=== PATIENT | female | born 1985 ===

== ENCOUNTER 2018-04-19 20:16 | Emergency (ER) | payer SELFPAY ==
[2018-04-19 20:54] VITALS: TEMP 98.4
[2018-04-19] MEDS ORDERED: Sodium Chloride 0.9% 1,000 ML IV ONE (21:24)
--- NOTE | 2018-04-19 21:35 | C.PDOC ---
History Of Present Illness 32 year old female presents to the ED c/o brown watery diarrhea and vomiting. Patient reports she ate a shrimp meal yesterday. Patient is also c/o epigastric abdominal and headache, patient has been vomiting all day and not able to tolerate anything by mouth. Patient states no one else is sick at her home. Patient denies fever, chills, dysuria, heamaturia, back pain, recent travel, sick contacts. Time Seen by Provider: 04/19/18 21:16 Chief Complaint (Nursing): Abdominal Pain History Per: Patient History/Exam Limitations: no limitations Onset/Duration Of Symptoms: Days Current Symptoms Are (Timing): Still Present Context: Food Location Of Pain/Discomfort: Epigastric Radiation Of Pain To:: None Quality Of Discomfort: "Pain" Associated Symptoms: Vomiting, Diarrhea, Loss Of Appetite Exacerbating Factors: Food Alleviating Factors: None Last Bowel Movement: Today Recent travel outside of the [place]: No Additional History Per: Patient Abnormal Vaginal Bleeding: No Past Medical History Reviewed: Historical Data, Nursing Documentation, Vital Signs Vital Signs: Last Vital Signs Temp 98.4 F 04/19/18 20:46 Pulse 83 04/19/18 20:46 Resp 18 04/19/18 20:46 BP 104/71 04/19/18 20:46 Pulse Ox 99 04/19/18 21:38 - Medical History PMH: No Chronic Diseases Surgical History: No Surg Hx Family History: States: Unknown Family Hx - Social History Hx Tobacco Use: No Hx Alcohol Use: No Hx Substance Use: No - Immunization History Hx Tetanus Toxoid Vaccination: No Hx Influenza Vaccination: No Hx Pneumococcal Vaccination: No Review Of Systems Constitutional: Negative for: Fever, Chills Cardiovascular: Negative for: Chest Pain, Palpitations Respiratory: Negative for: Cough, Shortness of Breath Gastrointestinal: Positive for: Vomiting, Abdominal Pain, Diarrhea Genitourinary: Negative for: Dysuria, Hematuria Skin: Negative for: Rash Neurological: Positive for: Headache. Negative for: Weakness, Numbness, Dizziness Physical Exam - Physical Exam Appears: Non-toxic, No Acute Distress Skin: Normal Color, Warm, Dry Head: Atraumatic, Normacephalic Eye(s): bilateral: Normal Inspection Oral Mucosa: Dry Neck: Normal ROM, Supple Chest: Symmetrical Cardiovascular: Rhythm Regular Respiratory: Normal Breath Sounds, No Rales, No Rhonchi, No Wheezing Gastrointestinal/Abdominal: Soft, Tenderness (epigastric), No Guarding, No Rebound Extremity: Normal ROM, No Tenderness, No Swelling Neurological/Psych: Oriented x3, Normal Speech, Normal Cognition Gait: Steady ED Course And Treatment - Laboratory Results Result Diagrams: 04/19/18 22:00 04/19/18 22:00 Lab Interpretation: Normal O2 Sat by Pulse Oximetry: 99 (ON RA) Pulse Ox Interpretation: Normal Reevaluation Time: 22:39 Reassessment Condition: Improved (after medication and IV fluids) Medical Decision Making Medical Decision Making: Impression: abdominal pain, diarrhea, vomiting Plan: * Labs * Bentyl 20 mg IM * Pepcid 20 mg IVP * IV fluids * Zofran 4 mg IVP * UA Disposition Counseled Patient/Family Regarding: Studies Performed, Diagnosis, Need For Followup, Rx Given - Disposition Referrals: at [facility] [Outside] Disposition: HOME/ ROUTINE Disposition Time: 22:53 Condition: IMPROVED Prescriptions: Dicyclomine [Bentyl] 20 mg PO QID PRN #20 tab PRN Reason: Pain, Moderate (4-7) Ondansetron ODT [Zofran ODT] 1 odt PO QID PRN #10 odt PRN Reason: Nausea/Vomiting Instructions: Nausea and Vomiting, Adult (DC), Couch Diet, Diarrhea in Adolescents and Adults Forms: [employer] (Amharic) Print Language: MALAY - Clinical Impression Clinical Impression: Nausea, Vomiting, Diarrhea - Scribe Statement The provider has reviewed the documentation as recorded by the Scribe Joon Davis All medical record entries made by the Scribe were at my direction and personally dictated by me. I have reviewed the chart and agree that the record accurately reflects my personal performance of the history, physical exam, medical decision making, and the department course for this patient. I have also personally directed, reviewed, and agree with the discharge instructions and disposition.
[2018-04-19 22:09] LABS: BASO % 0.4 % (0.0-2.0); EOS # 0.1 K/uL (0.0-0.7); EOS % 1.6 % (0.0-4.0); HEMOGLOBIN 13.4 g/dL (11.0-16.0); LYMPH # 2.5 K/uL (1.0-4.3); LYMPH % 28.9 % (20.0-40.0); MEAN CORPUSCULAR HEMOGLOBIN 29.6 pg (27.0-31.0); MEAN CORPUSCULAR HGB CONC 33.9 g/dL (33.0-37.0); MEAN PLATELET VOLUME 7.7 fL (7.2-11.7); MONO # 0.7 K/uL (0.0-0.8); MONO % 7.8 % (0.0-10.0); NEUT # 5.3 K/uL (1.8-7.0); NEUT % 61.3 % (50.0-75.0); NRBC % 0.1 % (0.0-2.0); RBC 4.51 Mil/uL (3.80-5.20); RED CELL DISTRIBUTION WIDTH 12.4 % (11.5-14.5); WHITE BLOOD COUNT 8.6 K/uL (4.8-10.8)
[2018-04-19 22:13] LABS: MEAN CELL VOLUME 87.5 fL (81.0-99.0)
[2018-04-19 22:18] LABS: HCG,QUALITATIVE URINE NEGATIVE (NEGATIVE)
[2018-04-19 22:26] LABS: ALB/GLOB RATIO 1.4 (1.0-2.1); ALBUMIN 4.3 g/dL (3.5-5.0); ALT/SGPT 19 U/L (9-52); AST/SGOT 17 U/L (14-36); BLOOD UREA NITROGEN 10 mg/dL (7-17); CALCIUM 8.6 mg/dl (8.6-10.4); GFR AFRICAN-AMERICAN > 60; GFR NON-AFRICAN AMERICAN > 60; LIPASE 79 U/L (23-300)
[2018-04-19 22:28] LABS: SQUAMOUS EPITHIAL 4 /hpf (0-5); URINE BILIRUBIN NEGATIVE (NEGATIVE); URINE BLOOD NEGATIVE (NEGATIVE); URINE CLARITY Hazy (Clear); URINE COLOR Yellow (YELLOW); URINE GLUCOSE (UA) NORMAL (Normal); URINE LEUKOCYTE ESTERASE NEG Leu/uL (Negative); URINE PROTEIN NEGATIVE (NEGATIVE); URINE UROBILINOGEN NORMAL mg/dL (0.2-1.0)
[2018-04-19 23:19] VITALS: BP 98/73; PULSE 56; RESP 16; O2SAT 100
== END 2018-04-19 23:17 | disposition home or self-care (01) ==
LOC: C.ER 20:16
DX: R11.2 Nausea with vomiting, unspecified (principal); R19.7 Diarrhea, unspecified
CPT/HCPCS: 80053; 81001; 83690; 84703; 85025; 96372; 96374; 96375; 99285; J0500; J2405; J7030

== ENCOUNTER 2018-09-21 20:25 | Emergency (ER) | payer BC ==
[2018-09-21 20:47] VITALS: BP 102/69; PULSE 82; RESP 18; TEMP 98.2; O2SAT 99
--- NOTE | 2018-09-21 21:33 | C.PDOC ---
History Of Present Illness 33 year old female presents to the emergency department with complaints of generalized body aches, sore throat, generalized weakness, and fever since yesterday. Patient reports several episodes of diarrhea since last night, but denies vomiting, cough, or recent travel. Time Seen by Provider: 09/21/18 20:39 Chief Complaint (Nursing): Flu-like Symptoms History Per: Patient History/Exam Limitations: no limitations Onset/Duration Of Symptoms: Days (1) Current Symptoms Are (Timing): Still Present Location Of Pain: Throat, Diffuse Myalgias Associated Symptoms: Fever, Myalgias, Diarrhea, Other (generalized body aches and weakness ). denies: Cough, Vomiting Past Medical History Reviewed: Historical Data, Nursing Documentation, Vital Signs Vital Signs: Last Vital Signs Temp 98.2 F 09/21/18 20:29 Pulse 82 09/21/18 20:29 Resp 18 09/21/18 20:29 BP 102/69 09/21/18 20:29 Pulse Ox 99 09/21/18 20:29 - Medical History PMH: No Chronic Diseases Surgical History: No Surg Hx Family History: States: No Known Family Hx - Social History Hx Tobacco Use: No Hx Alcohol Use: No Hx Substance Use: No - Immunization History Hx Tetanus Toxoid Vaccination: No Hx Influenza Vaccination: No Hx Pneumococcal Vaccination: No Review Of Systems Except As Marked, All Systems Reviewed And Found Negative. Constitutional: Positive for: Fever, Other (generalized body aches, generalized weakness) ENT: Positive for: Throat Pain Respiratory: Negative for: Cough Gastrointestinal: Positive for: Diarrhea. Negative for: Vomiting Physical Exam - Physical Exam Appears: Well, Non-toxic, No Acute Distress Skin: Normal Color, Warm, Dry Head: Atraumatic, Normacephalic Eye(s): bilateral: Normal Inspection, PERRL, EOMI Ear(s): Bilateral: Normal Nose: Normal Oral Mucosa: Moist Throat: Normal, No Erythema, No Exudate Neck: Normal, Supple Chest: Symmetrical, No Tenderness Cardiovascular: Rhythm Regular, No Murmur Respiratory: Normal Breath Sounds, No Rales, No Rhonchi, No Wheezing Gastrointestinal/Abdominal: Soft, No Tenderness, No Guarding, No Rebound Extremity: Normal ROM Neurological/Psych: Oriented x3, Normal Speech ED Course And Treatment O2 Sat by Pulse Oximetry: 99 (RA) Pulse Ox Interpretation: Normal Progress Note: Plan: Motrin 600mg PO. Throat Culture. Rapid Strep. Rapid strep resulted negative. Patient reports feeling better after being given Motrin. Patient seen conversing with family member at bedside. Patient is in no distress and is clear for discharge. Disposition Counseled Patient/Family Regarding: Diagnosis, Need For Followup, Rx Given - Disposition Referrals: [facility] [Outside] Disposition: HOME/ ROUTINE Disposition Time: 21:29 Condition: STABLE Additional Instructions: Increase PO fluids Take medications as directed Use CHLORASEPTIC spray to help with throat pain Avoid dairy or solid foods( Gatorade, joel davie, sprite, white rice, toast) Return to ER if symptoms worsen Prescriptions: Ibuprofen [Motrin] 600 mg PO Q6H #30 tab Instructions: Viral Syndrome (DC) Forms: [employer] (Mozambican) Print Language: DANISH - Clinical Impression Clinical Impression: Viral illness - PA / ANAESTHETIC TECHNICIAN / Resident Statement MD/DO has reviewed & agrees with the documentation as recorded. - Scribe Statement The provider has reviewed the documentation as recorded by the Scribe (Mauricio Lyons) All medical record entries made by the Scribe were at my direction and personally dictated by me. I have reviewed the chart and agree that the record accurately reflects my personal performance of the history, physical exam, medical decision making, and the department course for this patient. I have also personally directed, reviewed, and agree with the discharge instructions and disposition.
== END 2018-09-21 21:46 | disposition home or self-care (01) ==
LOC: C.ER 20:25
DX: B34.9 Viral infection, unspecified (principal)